=== PATIENT | female | born 1945 ===

== ENCOUNTER 2021-03-08 06:00 | Outpatient (RCR) | payer MEDICARE, BC, SELFPAY | END 2021-04-05 23:59 | disposition home or self-care (01) | LOC: TPT 06:00 | PROVIDERS: Referring Provider Orthopaedic Surgery; Visit Provider Orthopaedic Surgery | DX: M17.0 Bilateral primary osteoarthritis of knee (principal) | CPT/HCPCS: 97110; 97163 ==